=== PATIENT | male | born 1965 | race African-American/Black ===

== ENCOUNTER 2018-05-22 07:23 | Emergency (ER) | payer OTHER ==
[2018-05-22 07:35] VITALS: BP 134/93; PULSE 82; TEMP 98.6; BMI 37.8
--- NOTE | 2018-05-22 08:19 | PDOC ---
History of Present Illness - General Chief Complaint: Urinary Problem Stated Complaint: SUPRAPUBIC PAIN,URINARY FREQUENCY,HEMATURIA, Time Seen by Provider: 05/22/18 07:36 - History of Present Illness Initial Comments: 05/22/18 08:16 Pt is a 53 y/o gentleman ( [place]) with a past medical history of hypothyroidism, pernicious anemia, and PTSD. Pt presents to [facility] c/o urinary urgency, hesitancy, and frequency. States that he has observed "reddish- brownish clots" in his urine as well. Endorses terminal dysuria and chills. Pt states that these symptoms have been occurring for the past 5 days after he saw his Urologist (Dr. Bryant). Pt initially visited his Urologist for a routine annual check-up Pt was informed that he had BPH and was started on Alfuzosin during this time. Denies fever, nausea, vomiting, chest pain, sob, headache, or sick contacts. Past History - Past Medical History Allergies/Adverse Reactions: Allergies Allergy/AdvReac Type Severity Reaction Status Date / Time alfuzosin AdvReac Verified 05/22/18 07:28 Home Medications: Ambulatory Orders Alfuzosin HCl [Alfuzosin HCl ER] 10 mg PO DAILY 05/22/18 Levothyroxine [Synthroid -] 200 mcg PO DAILY 05/22/18 COPD: No Thyroid Disease: Yes (hypothyroid) - Suicide/Smoking/Psychosocial Hx Smoking History: Never smoked Review of Systems - Review of Systems Able to Perform ROS?: Yes Is the patient limited Romanian proficient: Yes : Yes: Burning, Dysuria (Terminal Dysuria), Frequency, Urgency Psychiatric: Yes: Anxiety, Stressors *Physical Exam - Vital Signs Last Vital Signs Temp Pulse Resp BP Pulse Ox 98.6 F 82 19 134/93 96 05/22/18 07:29 05/22/18 07:29 05/22/18 07:29 05/22/18 07:29 05/22/18 07:29 - Physical Exam Comments: 05/22/18 08:26 GEN- AAOx3, Anxious Neuro- CN 2-12 intact CVS- RRR No MRG S1 S2 RS- CTA B/L ABD- Suprapubic tenderness EXT- NT ND No HSM Genital- Testes WNL, No urethral Discharge
[2018-05-22 08:29] LABS: URINE APPEARANCE CLOUDY; URINE BILIRUBIN NEGATIVE (<2.0 mg/dL); URINE COLOR YELLOW; URINE GLUCOSE (UA) NEGATIVE (NEGATIVE); URINE KETONE NEGATIVE (NEGATIVE); URINE NITRITE NEGATIVE (NEGATIVE); URINE UROBILINOGEN NEGATIVE mg/dL (0.2-1.0)
[2018-05-22 08:33] LABS: URINE LEUK ESTERASE 3+ (NEGATIVE); URINE PROTEIN 2+ (NEGATIVE)
--- NOTE | 2018-05-22 08:34 | PDOC ---
History of Present Illness - General Chief Complaint: Urinary Problem Stated Complaint: SUPRAPUBIC PAIN,URINARY FREQUENCY,HEMATURIA, Time Seen by Provider: 05/22/18 07:36 - History of Present Illness Initial Comments: 05/22/18 08:35 Pt is a 53 y/o gentleman ( [place]) with a past medical history of hypothyroidism, pernicious anemia, and PTSD. Pt presents to [facility] c/o urinary urgency, hesitancy, and frequency. States that he has observed "reddish- brownish clots" in his urine as well. Endorses terminal dysuria and chills. Pt states that these symptoms have been occurring for the past 5 days after he saw his Urologist (Dr. Bryant). Pt initially visited his Urologist for a routine annual check-up Pt was informed that he had BPH and was started on Alfuzosin during this time. Denies fever, nausea, vomiting, chest pain, sob, headache, or sick contacts Past History - Past Medical History Allergies/Adverse Reactions: Allergies Allergy/AdvReac Type Severity Reaction Status Date / Time alfuzosin AdvReac Verified 05/22/18 07:28 Home Medications: Ambulatory Orders Alfuzosin HCl [Alfuzosin HCl ER] 10 mg PO DAILY 05/22/18 Ciprofloxacin [Cipro -] 500 mg PO Q12H #14 tablet 05/22/18 Levothyroxine [Synthroid -] 200 mcg PO DAILY 05/22/18 COPD: No Thyroid Disease: Yes (hypothyroid) - Suicide/Smoking/Psychosocial Hx Smoking History: Never smoked Review of Systems - Review of Systems Able to Perform ROS?: Yes Is the patient limited Azeri proficient: No : Yes: Dysuria (Terminal dysuria ), Frequency, Urgency Psychiatric: Yes: Anxiety, Stressors (PTSD ) *Physical Exam - Vital Signs Last Vital Signs Temp Pulse Resp BP Pulse Ox 98.6 F 82 19 134/93 96 05/22/18 07:29 05/22/18 07:29 05/22/18 07:29 05/22/18 07:29 05/22/18 07:29 - Physical Exam Comments: 05/22/18 08:34 05/22/18 08:26 GEN- AAOx3, Anxious Neuro- CN 2-12 intact CVS- RRR No MRG S1 S2 RS- CTA B/L ABD- Suprapubic tenderness EXT- NT ND No HSM Genital- Testes WNL, No urethral Discharge ED Treatment Course - ADDITIONAL ORDERS Additional order review: Laboratory Results 05/22/18 08:15 Urine Color Yellow Urine Appearance Cloudy Urine pH 5.0 Ur Specific [place] 1.023 Urine Protein 2+ H Urine Glucose (UA) Negative Urine Ketones Negative Urine Blood 2+ H Urine Nitrite Negative Urine Bilirubin Negative Urine Urobilinogen Negative Ur Leukocyte Esterase 3+ H Medical Decision Making - Medical Decision Making 05/22/18 08:35 Urine Culture, Urinalysis STAT 05/22/18 08:36 Urine Leukocyte Esterase 3+ Urine Blood 2+ 05/22/18 08:[address] Bryant 05/22/18 08:[address] Bryant. Advised to have pt continue taking Alfuzosin. Will f/u w/ pt this week as outpatient. 05/22/18 09:06 Cipro 500 Given to Pt. Prescription called to pharmacy. Advised to f/u w/ Urologist. Will D/C. *DC/Admit/Observation/Transfer Diagnosis at time of Disposition: UTI (urinary tract infection) - Prescriptions Prescriptions: Ciprofloxacin [Cipro -] 500 mg PO Q12H #14 tablet - Referrals Referrals: Get Seymour MD [Primary Care Provider] - Thomas Bryant MD [Staff Physician] - Call tomorrow (F/U w/ Urologist this week in office. ) - Patient Instructions Printed Discharge Instructions: Urinary Tract Infection Print Language: SPANISH - Post Discharge Activity
[2018-05-22 08:39] LABS: EPI CELLS RARE /HPF (FEW); URINE BACTERIA RARE /hpf (NONE SEEN)
[2018-05-22] MEDS ORDERED: CIPROFLOXACIN 500 MG TABLET (RESTRICTED TO ID) PO ONE (08:41)
--- NOTE | 2018-05-22 08:46 | PDOC ---
Attending Attestation - Resident Resident Name: German Malin - ED Attending Attestation I have performed the following: I have examined & evaluated the patient, The case was reviewed & discussed with the resident, I agree w/resident's findings & plan - HPI HPI: 05/22/18 08:43 Relatively healthy 53-year-old male presents with 3-4 days of urinary symptoms of frequency, urgency, urine discoloration, and suprapubic discomfort. Patient had an otherwise routine follow-up visit with his urologist, Dr. Mahmood, 5 days ago, had a reportedly normal visit but was diagnosed with early BPH and was prescribed alfusozin. Now with 3d of above symptoms so presents for evaluation. No history of UTI, is monogamous with his , no history of STI. - Physicial Exam PE: 05/22/18 08:44 Afebrile, vital signs normal Well-appearing, seated in chair, no acute distress Abdomen is soft/nondistended. Suprapubic discomfort palpation without guarding or rebound, no CVA tenderness exam per resident: normal, circumcised, no urethral discharge, normal scrotal exam. - Medical Decision Making 05/22/18 08:45 53-year-old male presents with 3 days symptoms consistent with clinical UTI, normal vital signs not suggestive of sepsis and presentation are consistent with prostatitis. Question translocation from recent visit, otherwise has no other red flags. Urinalysis and urine culture sent Will treat empirically with antibiotics, discuss with urology for follow-up.
[2018-05-22] MEDS ORDERED: PT OWN MED DRAWER 7, Y5N ONE (09:04)
== END 2018-05-22 09:14 | disposition home or self-care (01) ==
LOC: JER 07:23
DX: N39.0 Urinary tract infection, site not specified (principal); E03.9 Hypothyroidism, unspecified; F43.10 Post-traumatic stress disorder, unspecified; D51.0 Vitamin B12 deficiency anemia due to intrinsic factor deficiency
CPT/HCPCS: 81003; 81015; 87086; 99282-25

== ENCOUNTER 2018-09-25 09:44 | Emergency (ER) | payer OTHER ==
[2018-09-25 10:04] VITALS: BP 142/93; PULSE 88; TEMP 98.6; BMI 38.5
[2018-09-25] MEDS ORDERED: IBUPROFEN 400 MG TABLET (FP) PO ONE ×2 (11:40→11:44)
--- NOTE | 2018-09-25 11:42 | PDOC ---
History of Present Illness - General Chief Complaint: Ear Problem Stated Complaint: FOREIGN BODY (FB) Time Seen by Provider: 09/25/18 11:23 History Source: Patient Exam Limitations: Clinical Condition - History of Present Illness Initial Comments: 09/25/18 11:43 Patient with no significant past medical history present with complaint of plastic piece of earbud stuck in right ear when working out in a gym and listen to music with earphones this morning. Patient reported pain to right ear from earbud stuck in the ear. Patient denies any other symptoms Timing/Duration: 4-6 hours Past History - Past Medical History Allergies/Adverse Reactions: Allergies Allergy/AdvReac Type Severity Reaction Status Date / Time No Known Allergies Allergy Verified 09/25/18 10:04 Home Medications: Ambulatory Orders Alfuzosin HCl [Alfuzosin HCl ER] 10 mg PO DAILY 05/22/18 Ciprofloxacin [Cipro -] 500 mg PO Q12H #14 tablet 05/22/18 Levothyroxine [Synthroid -] 200 mcg PO DAILY 05/22/18 Ciprofloxacin [Cipro -] 500 mg PO Q12H #14 tablet 05/24/18 COPD: No Thyroid Disease: Yes (hypothyroid) - Suicide/Smoking/Psychosocial Hx Smoking History: Never smoked Hx Alcohol Use: No Drug/Substance Use Hx: No Review of Systems - Review of Systems Able to Perform ROS?: Yes Is the patient limited Cameroonian proficient: No Constitutional: No: Symptoms Reported HEENTM: Yes: See HPI, Ear Pain (right ear ) Respiratory: No: Symptoms reported Cardiac (ROS): No: Symptoms Reported ABD/GI: No: Symptoms Reported, Nausea, Vomiting All Other Systems: Reviewed and Negative *Physical Exam - Vital Signs Last Vital Signs Temp Pulse Resp BP Pulse Ox 98.6 F 88 20 142/93 97 09/25/18 10:00 09/25/18 10:00 09/25/18 10:00 09/25/18 10:00 09/25/18 10:00 - Physical Exam General Appearance: Yes: Nourished, Appropriately Dressed. No: Apparent Distress HEENT: positive: EMMANUEL, Hearing Grossly Normal, Other (plastic earbud embedded in external right ear canal). negative: TM Bulging (b/l) Neck: positive: Supple Respiratory/Chest: positive: Lungs Clear. negative: Respiratory Distress, Accessory Muscle Use Cardiovascular: positive: Regular Rhythm, Regular Rate. negative: Murmur Extremity: positive: Normal Inspection Integumentary: positive: Normal Color Neurologic: positive: Fully Oriented, Alert Moderate Sedation - Procedure Monitoring Vital Signs: Procedure Monitoring Vital Signs Temperature 98.6 F 09/25/18 10:00 Pulse Rate 88 09/25/18 10:00 Respiratory Rate 20 09/25/18 10:00 Blood Pressure 142/93 09/25/18 10:00 O2 Sat by Pulse Oximetry (%) 97 09/25/18 10:00 Medical Decision Making - Medical Decision Making 09/25/18 11:46 Patient with no significant past medical history presenting with complaint of earbud stuck in right ear this morning when using the headphones. Exam significant for plastic piece of earbud embedded in right external ear canal which was removed with forceps without complication. Normal right ear exam after removal of earbud. Motrin 800 mg by mouth given for pain. Patient is stable for discharge with ENT follow-up as needed. *DC/Admit/Observation/Transfer Diagnosis at time of Disposition: Foreign body in right ear, initial encounter - Discharge Dispostion Disposition: HOME Condition at time of disposition: Stable Decision to Admit order: No - Referrals Referrals: Get Seymour MD [Primary Care Provider] - Ryan Livingston MD [Staff Physician] - - Patient Instructions Printed Discharge Instructions: DI for Removal of Foreign Body From Ear Additional Instructions: Take Motrin as needed for pain. Follow-up with ENT if pain symptoms persist for more than 3 days. - Post Discharge Activity
== END 2018-09-25 11:45 | disposition home or self-care (01) ==
LOC: JERFT 09:44
PROC: 09C37ZZ Extirpation of Matter from Right External Auditory Canal, Via Natural or Artificial Opening (ICD-10-PCS; principal; 2018-09-25)
DX: T16.1XXA Foreign body in right ear, initial encounter (principal); X58.XXXA Exposure to other specified factors, initial encounter; Y93.B9 Activity, other involving muscle strengthening exercises; Y92.39 Other specified sports and athletic area as the place of occurrence of the external cause; Y99.8 Other external cause status
CPT/HCPCS: 69200; 99281-25

== ENCOUNTER 2019-03-07 09:14 | Emergency (ER) | payer OTHER ==
[2019-03-07 09:23] VITALS: BP 144/91; PULSE 84; TEMP 98.4; BMI 35.6
[2019-03-07] MEDS ORDERED: KETOROLAC TROMETHAMINE 60 MG/2 ML VIAL IM ONE (09:39)
[2019-03-07] MEDS ORDERED: KETOROLAC TROMETHAMINE 60 MG/2 ML VIAL ONE (09:40)
--- NOTE | 2019-03-07 09:42 | PDOC ---
History of Present Illness - General Chief Complaint: Pain Stated Complaint: INJURY Time Seen by Provider: 03/07/19 09:35 History Source: Patient Exam Limitations: Clinical Condition - History of Present Illness Initial Comments: 03/07/19 10:21 Patient with no significant past medical history with complaint of left calf muscle pain status post twisting her left leg while workup curbside over an hour ago. Patient reports severe sharp pain to posterior left lower leg which is worse with ambulation. Patient did not take anything for pain. Denies pain to left ankle or foot. Denies numbness or tingling sensation. Denies weakness in left leg. Timing/Duration: 1-3 hours Past History - Past Medical History Allergies/Adverse Reactions: Allergies Allergy/AdvReac Type Severity Reaction Status Date / Time No Known Allergies Allergy Verified 03/07/19 09:16 Home Medications: Ambulatory Orders Alfuzosin HCl [Alfuzosin HCl ER] 10 mg PO DAILY 05/22/18 Levothyroxine [Synthroid -] 200 mcg PO DAILY 05/22/18 Methocarbamol [Robaxin -] 500 mg PO BID PRN #14 tablet 03/07/19 Naproxen 500 mg PO BID PRN #20 tablet 03/07/19 COPD: No Thyroid Disease: Yes (hypothyroid) - Suicide/Smoking/Psychosocial Hx Smoking History: Former smoker Have you smoked in the past 12 months: No If you are a former smoker, when did you quit?: 2019 Information on smoking cessation initiated: No Hx Alcohol Use: No Drug/Substance Use Hx: No Review of Systems - Review of Systems Able to Perform ROS?: Yes Is the patient limited Persian proficient: No Constitutional: No: Malaise, Weakness HEENTM: No: Symptoms Reported Respiratory: No: Symptoms reported Cardiac (ROS): No: Symptoms Reported Musculoskeletal: Yes: Symptoms Reported, See HPI, Muscle Pain (left posterior lower leg), Joint Stiffness (left leg). No: Muscle Weakness Neurological: No: Numbness, Paresthesia, Tingling All Other Systems: Reviewed and Negative *Physical Exam - Vital Signs Last Vital Signs Temp Pulse Resp BP Pulse Ox 98.4 F 84 20 144/91 99 03/07/19 09:18 03/07/19 09:18 03/07/19 09:18 03/07/19 09:18 03/07/19 09:18 - Physical Exam Comments: GENERAL: Well developed, well nourished. Awake and alert in moderate acute distress. CARDIOVASCULAR: Regular rate and rhythm. No murmurs, rubs, or gallops. PULMONARY: No evidence of respiratory distress. MUSCULOSKELETAL : moderate point tenderness over calf and distal posterior left lower leg. No ankle pain or swelling. No tenderness to achilles tendon insertion of posterior ankle. Negative Desai's test of left calf muscle. Free range of motion of left lower leg with normal flexion and extension of left lower foot EXTREMITIES: No cyanosis. No clubbing. No edema. SKIN: Warm and dry. Normal capillary refill. No rashes. No jaundice. NEUROLOGICAL: Alert, awake, appropriate. No motor deficits in the lower extremities. Gait is normal without ataxia. PSYCHIATRIC: Cooperative. Good eye contact. Appropriate mood and affect. General Appearance: Yes: Nourished, Appropriately Dressed, Apparent Distress, Moderate Distress ED Treatment Course - RADIOLOGY Radiology Studies Ordered: Category Date Time Status LEG TIB/FIB-LEFT [RAD] Stat Radiology 03/07/19 09:37 Ordered Medical Decision Making - Medical Decision Making 03/07/19 10:21 Patient with no significant past medical history with complaint of left calf muscle pain status post twisting her left leg while workup curbside over an hour ago. Patient reports severe sharp pain to posterior left lower leg which is worse with ambulation. Patient did not take anything for pain. Denies pain to left ankle or foot. Denies numbness or tingling sensation. Denies weakness in left leg. Exam significant for moderate point tenderness over calf and distal posterior left lower leg. No ankle pain or swelling. No tenderness to achilles tendon insertion of posterior ankle. Negative Desai test. Symptoms likely leg strain. X-ray of left tib-fib shows no acute pathology. Toradol 60mg IM given for pain and patient report improved pain. Patient given crutches to help keep stress off calf muscles with advise to do hot compress to leg with ortho f/u prn *DC/Admit/Observation/Transfer Diagnosis at time of Disposition: Sprain of left lower leg Qualifiers: Encounter type: initial encounter Qualified Code(s): S83.92XA - Sprain of unspecified site of left knee, initial encounter - Discharge Dispostion Disposition: HOME Condition at time of disposition: Stable Decision to Admit order: No - Prescriptions Prescriptions: Methocarbamol [Robaxin -] 500 mg PO BID PRN #14 tablet PRN Reason: spasm Naproxen 500 mg PO BID PRN #20 tablet PRN Reason: pain - Referrals Referrals: Get Seymour MD [Primary Care Provider] - Aravind Dsouza DO [Staff Physician] - - Patient Instructions Printed Discharge Instructions: DI for Nocturnal Leg Cramps Additional Instructions: Your x-ray of left leg was normal and shows no pathology. Symptoms likely leg strain. Take prescribed medication as needed for pain and spasm. Apply hot compresses to left posterior leg as needed for pain. Follow-up referred orthopedics if no improvement in 2 days As prescribed crutches to help elevate weight off left leg for the next 24 hours. Keep leg elevated for the next 24 hours - Post Discharge Activity
== END 2019-03-07 10:35 | disposition home or self-care (01) ==
LOC: JERFT 09:14
PROC: 3E0233Z Introduction of Anti-inflammatory into Muscle, Percutaneous Approach (ICD-10-PCS; principal; 2019-03-07)
DX: S86.112A Strain of other muscle(s) and tendon(s) of posterior muscle group at lower leg level, left leg, initial encounter (principal); S83.8X2A Sprain of other specified parts of left knee, initial encounter; X50.1XXA Overexertion from prolonged static or awkward postures, initial encounter; Y93.01 Activity, walking, marching and hiking; Y92.480 Sidewalk as the place of occurrence of the external cause; Y99.8 Other external cause status; E03.9 Hypothyroidism, unspecified; Z87.891 Personal history of nicotine dependence
CPT/HCPCS: 73590-TC-LT-FY; 99281-25

== ENCOUNTER 2019-07-01 10:36 | Day surgery (SDC) | payer OTHER ==
[2019-06-28 16:21] VITALS: BMI 36.3
[2019-07-01] MEDS ORDERED: LIDOCAINE HCL 1%, 10 MG/ML (20ML VIAL) ONE (10:55)
[2019-07-01] MEDS ORDERED: LIDOCAINE 1%-EPI 1:100,000 30 ML MDV IJ ONE (10:55)
[2019-07-01] MEDS ORDERED: BUPIVACAINE HCL/PF 0.25% (2.5MG/ML) 10 ML VIAL ONE (11:19)
[2019-07-01] MEDS ORDERED: GENTAMICIN SO4 80 MG/2 ML VIAL ONE ×2 (11:19→11:56)
[2019-07-01] MEDS ORDERED: ceFAZolin SODIUM 1 GM VIAL IVPB ONE ×2 (11:43→12:14)
[2019-07-01] MEDS ORDERED: BACITRACIN 50,000 UNITS VIAL IM ONE (11:49)
[2019-07-01] MEDS ORDERED: oxyCODONE HCL 5 MG TABLET PO PRN ×2 (12:09→13:01)
[2019-07-01] MEDS ORDERED: ONDANSETRON 4 MG/2 ML VIAL IVPUSH PRN (12:09)
[2019-07-01] MEDS ORDERED: BUPIVACAINE HCL/PF 2.5 MG/ML - 30 ML VIAL IJ ONE ×2 (12:14)
[2019-07-01] MEDS ORDERED: LACTATED RINGERS SOLUTION 1,000 ML IV SCH (12:15)
[2019-07-01] MEDS ORDERED: BACITRACIN 15 GM TUBE TOPICAL OINTMENT ONE (12:47)
[2019-07-01] MEDS ORDERED: ACETAMINOPHEN 325 MG TABLET (FP) PO PRN (13:06)
[2019-07-01] MEDS ORDERED: LORazepam 2 MG/ML SDV VIAL ONE (13:12)
--- NOTE | 2019-07-01 13:45 | OP ---
DATE OF ADMISSION: 07/01/2019 PREOPERATIVE DIAGNOSIS: Dislodged right penile cylinder, status post placement of a Coloplast Titan 3-piece inflatable penile prosthesis. POSTOPERATIVE DIAGNOSIS: Dislodged right distal cylinder. OPERATIVE PROCEDURE: Penile exploration, irrigation, and corporal dilation, and placement of cylinder in right corpora cavernosum. ANESTHESIA: General. Under above-stated anesthesia, patient was prepped and draped in the usual sterile manner. He was placed in the supine position. A 2-cm vertical incision was made in the distal right side of the penis. This was carried down through skin and subcutaneous tissue. A 2-cm colpotomy was made. The tip of cylinder was seen protruding outside the corpora cavernosum. Therefore, the distal corpora was dilated with Dustin sounds to 32-Ira[place]. The corpora was irrigated with antibiotic solution. Cultures were taken. Again, vigorous irrigation including Betadine and peroxide were used. After proper irrigation, the cylinder was placed in the distal corpora. The corpora was closed with 2-0 Vicryl suture ligatures. No active bleeding was noted. The subcutaneous was closed with 3-0 Vicryl suture ligatures. The skin was closed with 4-0 mattress chromic suture. Pressure dressing was applied. A penile block using 0.25% Marcaine was used for long-term analgesia. The patient tolerated the procedure well. He returned to the recovery room in good condition. Elías [id number]
[2019-07-01] MEDS ORDERED: oxyCODONE HCL 5 MG TABLET ONE (14:52)
[2019-07-01 15:09] VITALS: PULSE 74
[2019-07-01 15:39] VITALS: BP 133/86; TEMP 97.8
== END 2019-07-01 15:30 | disposition home or self-care (01) ==
LOC: JASU-SURG 10:36
PROVIDERS: ATTEND Urology
PROC: 0VWS0JZ Revision of Synthetic Substitute in Penis, Open Approach (ICD-10-PCS; principal; 2019-07-01 13:00)
DX: T83.420A Displacement of implanted penile prosthesis, initial encounter (principal); Y82.8 Other medical devices associated with adverse incidents; Y92.9 Unspecified place or not applicable
CPT/HCPCS: 87070; 87077; 87086; 87205; 94760

== ENCOUNTER 2020-06-21 14:51 | Emergency (ER) | payer OTHER ==
[2020-06-21 14:59] VITALS: BP 124/76; PULSE 78; TEMP 97; BMI 35.6
--- OUTSIDE RECORDS SUMMARY | 2020-06-21 15:20 | XMS ---
:1965 Author Organization [facility] Support Name Relationship Address Phone UE Unavailable Unavailable Unavailable KIP BERTRAND FRIEND [address] [place] [address] [place] Un[place] [address] KIP RODRIGUEZ - [address] [place] [address] EPHRAIM RODRIGUEZ Unavailable [address] [place] [address] Re-disclosure Warning The records that you are about to access may contain information from federally- assisted alcohol or drug abuse programs. If such information is present, then the following federally mandated warning applies: This information has been disclosed to you from records protected by federal confidentiality rules (42 CFR part 2). The federal rules prohibit you from making any further disclosure of this information unless further disclosure is expressly permitted by the written consent of the person to whom it pertains or as otherwise permitted by 42 CFR part 2. A general authorization for the release of medical or other information is NOT sufficient for this purpose. The Federal rules restrict any use of the information to criminally investigate or prosecute any alcohol or drug abuse patient.The records that you are about to access may contain highly sensitive health information, the redisclosure of which is protected by Article 27-F of the [facility] Public Health law. If you continue you may haveaccess to information: Regarding HIV / AIDS; Provided by facilities licensed or operated by the [facility] Office of Mental Health; or Provided by the [facility] Office for People With Developmental Disabilities. If such information is present, then the following [facility] mandated warning applies: This information has been disclosed to you from confidential records which are protected by state law. State law prohibits you from making any further disclosure of this information without the specific written consent of the person to whom it pertains, or as otherwise permitted by law. Any unauthorized further disclosure in violation of state law may result in a fine or residential sentence or both. A general authorization for the release of medical or other information is NOT sufficient authorization for further disclosure. Insurance Providers Payer name Policy type Policy ID Covered Covered constitution party's Policy P mark / Coverage constitution party ID relationship to [employer] type spencer MEDICAID [id number] SP [id number] [facility] DUAL [id number] SP [id number] COMPLETE MEDICAID [id number] SP [id number] FORMER[facility] DUAL [id number] SP [id number] COMPLETE W [id number] UNITED O [id number] HEALTHCARE MC[employer] OPD UNITED O [id number] HEALTHCARE MCARE OPD
--- NOTE | 2020-06-21 15:48 | PDOC ---
History of Present Illness - General Chief Complaint: Pain Stated Complaint: L WRIST PAIN Time Seen by Provider: 06/21/20 15:18 History Source: Patient Exam Limitations: No Limitations - History of Present Illness Initial Comments: 06/21/20 15:46 55-year-old male history of pernicious anemia, [id number] presents complaining of atraumatic left hand and wrist pain x 3 weeks. Denies numbness, tingling, weakness, fever, chills, arm pain or any other complaint. Patient denies taking any pain medication. ROS: as above PE: GENERAL: well-appearing, NAD HEAD: NCAT EYES: Pupils equal, round and reactive to light, sclera anicteric, conjunctiva clear ENT: pharynx: no erythema, no exudate, uvula midline NECK: supple CHEST: nontender RESP: clear, no w/r/r CARDIO: rrr, no m/g/r ABD: +BS, soft, nontender, non distended BACK: no midline spinal ttp, no CVAT EXTREMITIES: Normal range of motion, minimal tenderness to palpation over left medial wrist, no ecchymoses, no swelling noted, positive radial pulse, 5/5 strength and sensation NEUROLOGICAL: Normal speech, normal gait SKIN: Warm, Dry Past History - Medical History Allergies/Adverse Reactions: Allergies Allergy/AdvReac Type Severity Reaction Status Date / Time No Known Allergies Allergy Verified 06/21/20 14:59 Home Medications: Ambulatory Orders Levothyroxine [Synthroid -] 200 mcg PO HS 05/22/18 Anemia: No Asthma: No Cancer: No Cardiac Disorders: No CVA: No COPD: No CHF: No Dementia: No Diabetes: No GI Disorders: No Disorders: No HTN: No Hypercholesterolemia: No Liver Disease: No Seizures: No Thyroid Disease: Yes (hypothyroid) - Psycho-Social/Smoking History Smoking History: Never smoked Have you smoked in the past 12 months: No If you are a former smoker, when did you quit?: 2019 *Physical Exam - Vital Signs Last Vital Signs Temp Pulse Resp BP Pulse Ox 97 F L 78 18 124/76 99 06/21/20 14:56 06/21/20 14:56 06/21/20 14:56 06/21/20 14:56 06/21/20 14:56 ED Treatment Course - RADIOLOGY Radiology Studies Ordered: Category Date Time Status HAND- LEFT [RAD] Stat Radiology 06/21/20 15:40 Ordered WRIST-LEFT [RAD] Stat Radiology 06/21/20 15:40 Ordered Medical Decision Making - Medical Decision Making 06/21/20 15:47 55-year-old male history of pernicious anemia, [id number] presents complaining of atraumatic left hand and wrist pain x 3 weeks. Denies numbness, tingling, weakness, fever, chills, arm pain or any other complaint. Patient denies taking any pain medication. Left hand and wrist x-ray Declines analgesia 06/21/20 16:30 Left hand and wrist x-ray: No acute fracture on my wet read Advised patient to follow-up with PMD Discharge - Discharge Information Problems reviewed: Yes Clinical Impression/Diagnosis: Wrist pain, left Condition: Stable Disposition: HOME - Admission No - Follow up/Referral Referrals: Get Seymour MD [Primary Care Provider] - - Patient Discharge Instructions Additional Instructions: Alternate between acetaminophen 975 mg and ibuprofen 600 mg every 6 hours as needed Follow-up with your doctor within 1 week - Post Discharge Activity
== END 2020-06-21 16:49 | disposition home or self-care (01) ==
LOC: JERFT 14:51
DX: M25.532 Pain in left wrist (principal)
CPT/HCPCS: 73110-TC-LT-FY; 73130-TC-LT-FY; 99284-25

== ENCOUNTER 2021-01-29 08:22 | Emergency (ER) | payer OTHER ==
[2021-01-29 08:28] VITALS: TEMP 97.7; BMI 34.7
[2021-01-29] MEDS ORDERED: ACETAMINOPHEN 1000 MG/100 ML VIAL (NON FORMULARY) IVPB ONE (09:20)
[2021-01-29] MEDS ORDERED: SODIUM CHLORIDE 1,000 ML IV STA ×2 (09:20→10:59)
[2021-01-29] MEDS ORDERED: PSEUDOEPHEDRINE HCL 30 MG TABLET PO ONE (09:21)
[2021-01-29] MEDS ORDERED: ACETAMINOPHEN INJECTION 100 ML IVPB ONE (09:30)
[2021-01-29] MEDS ORDERED: PSEUDOEPHEDRINE HCL 60 MG TABLET ONE (09:30)
[2021-01-29 10:04] LABS: BASO % 3.1 % (0-2.0); EOS % 0.2 % (0-4.5); HEMOGLOBIN 15.4 GM/dL (11.7-16.9); LYMPH % 35.3 % (8-40); MCH 30.6 pg (25.7-33.7); MEAN CELL VOLUME 87.2 fl (80-96); MEAN PLT VOLUME 7.5 fl (7.5-11.1); MONO % 11.3 % (3.8-10.2); NEUT % 50.1 % (42.8-82.8); PLATELET COUNT 332 K/MM3 (134-434); RBC 5.04 M/mm3 (4.00-5.60); RDW 14.1 % (11.9-15.9); WHITE BLOOD COUNT 4.4 K/mm3 (4.0-10.0)
[2021-01-29 10:10] LABS: INR 0.98 (0.83-1.09); PROTHROMBIN TIME (PATIENT) 11.9 SEC (9.7-13.0)
[2021-01-29 10:26] LABS: CHLORIDE 105 mmol/L (98-107); SODIUM 136 mmol/L (136-145)
[2021-01-29 10:28] LABS: CALCIUM 9.2 mg/dL (8.5-10.1); GLUCOSE,RANDOM 97 mg/dL (74-106)
[2021-01-29 10:29] LABS: ALBUMIN 3.9 g/dl (3.4-5.0); ANION GAP 4 MMOL/L (8-16); BLOOD UREA NITROGEN 13.3 mg/dL (7-18); CO2 27 mmol/L (21-32)
[2021-01-29 10:32] LABS: CREATININE 1.1 mg/dL (0.55-1.3); SGOT/AST 42 U/L (15-37); SGPT/ALT 55 U/L (13-61)
[2021-01-29 10:33] LABS: BILIRUBIN,TOTAL 0.7 mg/dL (0.2-1); TOT PROT 8.1 g/dl (6.4-8.2)
[2021-01-29 10:34] LABS: ALK PHOS 86 U/L (45-117)
[2021-01-29 12:36] VITALS: BP 150/98; PULSE 67
== END 2021-01-29 12:52 | disposition home or self-care (01) ==
LOC: JER 08:22
PROC: 3E0333Z Introduction of Anti-inflammatory into Peripheral Vein, Percutaneous Approach (ICD-10-PCS; principal; 2021-01-29)
PROC: 3E0337Z Introduction of Electrolytic and Water Balance Substance into Peripheral Vein, Percutaneous Approach (ICD-10-PCS; 2021-01-29)
PROC: 3E0337Z Introduction of Electrolytic and Water Balance Substance into Peripheral Vein, Percutaneous Approach (ICD-10-PCS; 2021-01-29)
DX: I10 Essential (primary) hypertension (principal)
CPT/HCPCS: 36415; 71046-TC-FY; 80053; 82550; 82553; 82607; 84439; 84443; 84484; 85025; 85610; 93005; 93010; 99285-25; C9803; J0131; U0003; U0005

== ENCOUNTER 2024-08-26 06:17 | Day surgery (SDC) | payer OTHER ==
[2024-08-21 13:33] VITALS: BMI 31.6
[2024-08-26] MEDS ORDERED: BUPIVACAINE HCL/EPINEPHRINE/PF 30 ML VIAL IJ ONE (08:09)
[2024-08-26] MEDS ORDERED: EPINEPHrine 1:1,000 1,000 MCG/ML ML ONE (08:09)
[2024-08-26] MEDS ORDERED: MIDAZOLAM HCL 2 MG/2 ML SINGLE DOSE VIAL ONE (11:06)
[2024-08-26] MEDS ORDERED: DEXAMETHASONE SOD PHOSPHATE 10 MG/1 ML VIAL ONE (11:30)
[2024-08-26] MEDS ORDERED: BUPIVACAINE HCL/PF 0.5% (5 MG/ML) 30 ML VIAL IJ ONE (11:30)
[2024-08-26] MEDS ORDERED: FENTANYL CITRATE/PF 50 MCG/ML VIAL ONE ×3 (11:30→16:10)
[2024-08-26] MEDS ORDERED: ACETAMINOPHEN INJECTION 100 ML ONE (11:30)
[2024-08-26] MEDS ORDERED: PROPOFOL 20 ML ONE (12:00)
[2024-08-26] MEDS: BUPIVACAINE 0.25% /EPI 1:200,000 10 ML VIAL NR ONE (12:36)
[2024-08-26] MEDS ORDERED: ONDANSETRON 4 MG/2 ML VIAL ONE (12:48)
[2024-08-26] MEDS ORDERED: DEXAMETHASONE SOD PHOSPHATE 4 MG/1 ML VIAL ONE (12:48)
[2024-08-26] MEDS ORDERED: KETOROLAC TROMETHAMINE 30 MG/1 ML VIAL ONE (12:48)
[2024-08-26] MEDS ORDERED: LIDOCAINE HCL/PF 2% SDV 5ML VIAL ONE (12:48)
[2024-08-26] MEDS ORDERED: VANCOMYCIN 1,000 MG VIAL (RESTRICTED TO ID ONLY) ONE (14:58)
[2024-08-26] MEDS ORDERED: ONDANSETRON 4 MG/2 ML VIAL IVPUSH PRN (15:47)
[2024-08-26] MEDS ORDERED: oxyCODONE HCL 5 MG TABLET PO PRN (15:47)
[2024-08-26] MEDS ORDERED: LACTATED RINGERS SOLUTION 1,000 ML IV SCH (16:00)
[2024-08-26] MEDS ORDERED: oxyCODONE HCL 5 MG TABLET ONE (16:14)
[2024-08-26] MEDS: oxyCODONE HCL 5 MG TABLET PO PRN (16:20)
[2024-08-26] MEDS ORDERED: HYDROmorphone HCL/PF 1 MG/ML VIAL ONE (16:34)
[2024-08-26] MEDS: HYDROmorphone HCl 2 MG/ML VIAL IVPB PRN (16:40)
[2024-08-26] MEDS ORDERED: HYDROmorphone HCL/PF 1 MG/ML VIAL IVPB PRN (17:09)
[2024-08-26 17:15] VITALS: TEMP 97.6
[2024-08-26 18:34] VITALS: BP 140/86; PULSE 70; RESP 19
== END 2024-08-26 18:15 | disposition home or self-care (01) ==
LOC: FASU 06:17
PROVIDERS: ATTEND Orthopaedic Surgery
PROC: 0RBK4ZZ Excision of Left Shoulder Joint, Percutaneous Endoscopic Approach (ICD-10-PCS; principal; 2024-08-26 12:36)
PROC: 0LS44ZZ Reposition Left Upper Arm Tendon, Percutaneous Endoscopic Approach (ICD-10-PCS; 2024-08-26 12:36)
PROC: 0KX Muscles, Transfer (ICD-10-PCS; 2024-08-26 12:36)
DX: S46.012D Strain of muscle(s) and tendon(s) of the rotator cuff of left shoulder, subsequent encounter (principal); M75.22 Bicipital tendinitis, left shoulder; M75.52 Bursitis of left shoulder; M65.822 Other synovitis and tenosynovitis, left upper arm; S43.432D Superior glenoid labrum lesion of left shoulder, subsequent encounter; M75.02 Adhesive capsulitis of left shoulder; X58.XXXD Exposure to other specified factors, subsequent encounter
CPT/HCPCS: 88304-TC; 94760; C1713; J0131; J1100

== ENCOUNTER 2025-05-28 12:15 | Emergency (ER) | payer OTHER ==
[2025-05-28 12:30] VITALS: BP 165/94; PULSE 72; RESP 18; TEMP 97.8; BMI 33.6
[2025-05-28] MEDS: ACETAMINOPHEN 500 MG TABLET (FP) PO ONE (12:57)
[2025-05-28] MEDS ORDERED: ACETAMINOPHEN 500 MG TABLET (FP) ONE (12:57)
== END 2025-05-28 14:08 | disposition home or self-care (01) ==
LOC: JER 12:15
DX: M25.551 Pain in right hip (principal); M25.512 Pain in left shoulder; W10.9XXA Fall (on) (from) unspecified stairs and steps, initial encounter
CPT/HCPCS: 72170-TC-FY; 73030-TC-LT-FY; 73502-TC-RT-FY; 99284-25